=== PATIENT | male | born 1940 | race African-American/Black ===

== ENCOUNTER 2021-01-16 14:32 | Inpatient (IN) | payer MEDICARE, BC ==
[~2021-01-16] VITALS: Ht 182.9 cm; Wt 68.0 kg
--- NOTE | 2021-01-16 14:42 | NUR ---
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
--- NOTE | 2021-01-16 14:45 | NUR ---
[employer] [employer] ESTABLISHED 22G L HAND
[2021-01-16] MEDS ORDERED: MORPHINE SULFATE INJ 4 MG/ML DISP.SYRIN ONE (14:56)
[2021-01-16] MEDS ORDERED: ONDANSETRON HCL/PF 4 MG/2 ML VIAL ONE (14:56)
[2021-01-16] MEDS ORDERED: IV NS 0.9% 1,000 ML BAG IV ONE (15:00)
[2021-01-16] MEDS ORDERED: ONDANSETRON HCL/PF 4 MG/2 ML VIAL IVP ONE (15:00)
[2021-01-16] MEDS ORDERED: MORPHINE SULFATE INJ 2 MG/ML DISP.SYRIN IV ONE (15:00)
[2021-01-16 15:24] LABS: BASOPHILS # (AUTO) 0.1 K/uL (0.0-0.2); EOSINOPHILS % (AUTO) 0.1 % (0.0-6.0); HEMATOCRIT 39 % (39-51); HEMOGLOBIN 12.9 g/dL (13.5-17.5); LYMPHOCYTES # (AUTO) 0.4 K/uL (0.8-4.8); LYMPHOCYTES % (AUTO) 2.7 % (20.0-44.0); MEAN CORPUSCULAR HGB CONC 33 g/dl (31.0-36.0); MEAN CORPUSCULAR VOLUME 95 fL (80-96); MONOCYTES # (AUTO) 0.5 K/uL (0.1-1.30); MONOCYTES % (AUTO) 3.6 % (2.0-12.0); NEUTROPHILS # (AUTO) 12.4 K/uL (1.8-8.9); NEUTROPHILS % (AUTO) 92.6 % (43.0-81.0); PLATELET COUNT (AUTO) 339 K/uL (150-450); RED BLOOD CELL COUNT(AUTO) 4.07 MIL/uL (4.5-6.0); WHITE BLOOD COUNT (AUTO) 13.4 K/uL (4.3-11.0)
--- NOTE | 2021-01-16 15:31 | NUR ---
UNABLE TO PROVIDE URINE AT THIS TIME
--- NOTE | 2021-01-16 15:35 | NUR ---
KEG FILLER AT BEDSIDE
--- NOTE | 2021-01-16 15:54 | NUR ---
TAKEN TO CT
[2021-01-16 16:01] LABS: CALCIUM, SERUM 8.6 mg/dL (8.5-10.1); CARBON DIOXIDE 18 mmol/L (21-32); CHLORIDE 91 mmol/L (98-107); CREATININE 1.7 mg/dL (0.6-1.3); GLUCOSE 136 mg/dL (74-106); POTASSIUM 5.1 mmol/L (3.5-5.1); SODIUM SERUM 124 mmol/L (136-145); UREA NITROGEN, BLOOD 35 mg/dL (7-18)
[2021-01-16 16:09] LABS: ALANINE AMINOTRANSFERASE 112 U/L (12-78); ALBUMIN 3.1 g/dL (3.4-5.0); ALKALINE PHOSPHATASE 123 U/L (46-116); ASPARTATE AMINOTRANSFERASE 151 U/L (15-37); BILIRUBIN,DIRECT 0.6 mg/dL (0.0-0.2); BILIRUBIN,TOTAL 1.6 mg/dL (0.2-1.0); LIPASE 107 U/L (73-393); TOTAL PROTEIN, SERUM 7.1 g/dL (6.4-8.2)
--- NOTE | 2021-01-16 16:46 | NUR ---
MOVE SHEET SUBMITTED AND CALLED FOR MS BED.
--- NOTE | 2021-01-16 17:05 | NUR ---
[facility] CALLED [facility] PAGED.
--- NOTE | 2021-01-16 17:06 | NUR ---
COVID ANTIGEN SWAB DONE AND SENT TO LAB
--- NOTE | 2021-01-16 17:06 | NUR ---
URINE COLLECTED AND SENT TO LAB
--- NOTE | 2021-01-16 17:15 | NUR ---
UI DEVELOPER DESIGNER CONTACT INFO: DR LOS MARCH
[2021-01-16 17:18] LABS: BILIRUBIN,URINE SMALL (NEGATIVE); COLOR,URINE YELLOW (YELLOW); LEUKOCYTE ESTERASE ,URINE NEGATIVE (NEGATIVE); NITRITE, URINE NEGATIVE (NEGATIVE); PROTEIN,URINE NEGATIVE (NEGATIVE); UGLUCOSE NEGATIVE (NEGATIVE); UROBILINOGEN,URINE 0.2 EU/dL (0.2)
[2021-01-16] MEDS ORDERED: AMIO100T4 PO (17:18)
[2021-01-16] MEDS ORDERED: FERR240T2 PO (17:18)
[2021-01-16] MEDS ORDERED: FLUT16SP16 NS (17:18)
[2021-01-16] MEDS ORDERED: LEVO112T5 PO (17:18)
[2021-01-16] MEDS ORDERED: SACC250C PO (17:18)
[2021-01-16] MEDS ORDERED: OMEP40CA21 PO (17:18)
[2021-01-16] MEDS ORDERED: MULT-1152 PO (17:18)
[2021-01-16] MEDS ORDERED: EZET10TA32 PO (17:18)
[2021-01-16] MEDS ORDERED: PRAV20TA4 PO (17:18)
[2021-01-16] MEDS ORDERED: FOLI0.8T3 PO (17:18)
[2021-01-16] MEDS ORDERED: ONDA4TAB11 PO (17:18)
[2021-01-16] MEDS ORDERED: BUDE10.26 INH (17:18)
[2021-01-16] MEDS ORDERED: ONDANSETRON HCL/PF 4 MG/2 ML VIAL IVP PRN (18:00)
[2021-01-16] MEDS ORDERED: MORPHINE SULFATE INJ 2 MG/ML DISP.SYRIN IV PRN (18:00)
[2021-01-16] MEDS ORDERED: ACETAMINOPHEN 325 MG TABLET PO PRN (18:00)
[2021-01-16] MEDS ORDERED: Z GUARD REMEDY 2 OZ OINT TP PRN (18:00)
[2021-01-16] MEDS ORDERED: MAGNESIUM HYDROXIDE 30 ML UDC PO PRN (18:00)
[2021-01-16] MEDS ORDERED: HYDROCODONE/APAP 10/325MG TABLET PO PRN (18:00)
[2021-01-16] MEDS ORDERED: MAG HYDROX/AL HYDROX/SIMETH 30 ML UDC PO PRN (18:00)
[2021-01-16] MEDS ORDERED: ONDANSETRON 4 MG TAB.RAPDIS PO PRN (18:00)
[2021-01-16] MEDS ORDERED: EZETIMIBE 10 MG TABLET PO SCH (22:00)
[2021-01-16] MEDS ORDERED: FLUTICASONE PROPIONATE 16 GM BOTTLE NS SCH (22:00)
[2021-01-16] MEDS ORDERED: PRAVASTATIN SODIUM 20 MG TABLET PO SCH (22:00)
--- NOTE | 2021-01-16 23:18 | NUR ---
PT NOTED WITH LOOSE BM X1
--- NOTE | 2021-01-17 00:43 | NUR ---
PT STATED HE HAD A LOOSE BM, STILL FEELS IMPACTED. PREVIOUS BM BEFORE THIS WAS X4 DAYS AGO. PT CONNECTED TO MONITOR AND POX
[2021-01-17] MEDS ORDERED: APIX2.5T PO (01:04)
[2021-01-17] MEDS ORDERED: FERR270T PO (01:07)
[2021-01-17] MEDS ORDERED: LACTULOSE 10 G/15 ML UDC (PYXIS) ONE ×2 (01:16→06:09)
[2021-01-17] MEDS ORDERED: EZETIMIBE 10 MG TABLET ONE (01:16)
[2021-01-17] MEDS: LACTULOSE 10 G/15 ML UDC (PYXIS) GT SCH ×2 (01:25→06:15)
--- NOTE | 2021-01-17 01:25 | NUR ---
NOTIFIED CATHLEEN CRAMER NP TO UPDATE MED RECON.
[2021-01-17] MEDS ORDERED: IV NS 0.9% 1,000 ML IV PRN (01:30)
[2021-01-17] MEDS ORDERED: FLUTICASONE PROPIONATE 16 GM BOTTLE NS SCH (01:34)
[2021-01-17] MEDS ORDERED: APIXABAN 2.5 MG TABLET ONE (02:12)
--- NOTE | 2021-01-17 04:11 | NUR ---
PT NOTED WITH LOOSE BM X1.
--- NOTE | 2021-01-17 04:42 | NUR ---
UPDATED MIKEL () ON PT'S STATUS
[2021-01-17 06:09] LABS: BASOPHILS % (AUTO) 0.2 % (0.0-2.0); EOSINOPHILS % (AUTO) 0.2 % (0.0-6.0); HEMATOCRIT 34 % (39-51); HEMOGLOBIN 11.7 g/dL (13.5-17.5); LYMPHOCYTES # (AUTO) 1.3 K/uL (0.8-4.8); LYMPHOCYTES % (AUTO) 8.6 % (20.0-44.0); MEAN CORPUSCULAR HGB CONC 34 g/dl (31.0-36.0); MEAN CORPUSCULAR VOLUME 94 fL (80-96); MONOCYTES # (AUTO) 1.5 K/uL (0.1-1.30); MONOCYTES % (AUTO) 9.8 % (2.0-12.0); NEUTROPHILS # (AUTO) 12.1 K/uL (1.8-8.9); NEUTROPHILS % (AUTO) 81.2 % (43.0-81.0); PLATELET COUNT (AUTO) 308 K/uL (150-450); RED BLOOD CELL COUNT(AUTO) 3.67 MIL/uL (4.5-6.0); WHITE BLOOD COUNT (AUTO) 14.9 K/uL (4.3-11.0)
--- NOTE | 2021-01-17 06:11 | NUR ---
ROOM 312-1 AFTER SHIFT CHANGE
--- NOTE | 2021-01-17 06:31 | NUR ---
LOOSE BM X1
--- NOTE | 2021-01-17 06:31 | NUR ---
ADLS PERFORMS; PT SKIN KEPT C/D/I. PT DENIES PAIN OR DISCOMFORT. ALL NEEDS MET.
[2021-01-17 06:56] LABS: CALCIUM, SERUM 8.2 mg/dL (8.5-10.1); CARBON DIOXIDE 20 mmol/L (21-32); CHLORIDE 94 mmol/L (98-107); CREATININE 1.7 mg/dL (0.6-1.3); GLUCOSE 117 mg/dL (74-106); MAGNESIUM 2.3 mg/dL (1.8-2.4); PHOSPHORUS 5.2 mg/dL (2.5-4.9); SODIUM SERUM 126 mmol/L (136-145); UREA NITROGEN, BLOOD 38 mg/dL (7-18)
[2021-01-17] MEDS ORDERED: BUDESONIDE RESPULE INH 0.5 MG/2 ML AMPUL.NEB IH SCH (07:05)
--- NOTE | 2021-01-17 07:10 | NUR ---
CALLED 3W TO GIVE REPORT; RN NOT AVAILABLE AT THIS TIME.
[2021-01-17] MEDS ORDERED: LEVOTHYROXINE SODIUM 75 MCG TABLET PO SCH (07:30)
[2021-01-17] MEDS ORDERED: PANTOPRAZOLE 40 MG TABLET.DR PO SCH (07:30)
[2021-01-17] MEDS ORDERED: ALBUTEROL FS 2.5 MG/3 ML VIAL.NEB NEB SCH (07:35)
[2021-01-17] MEDS ORDERED: PANTOPRAZOLE 40 MG TABLET.DR PO ONE (07:37)
[2021-01-17] MEDS ORDERED: LEVOTHYROXINE SODIUM 100 MCG TABLET ONE (07:37)
[2021-01-17] MEDS ORDERED: LEVOTHYROXINE SODIUM 50 MCG TABLET ONE (07:37)
[2021-01-17] MEDS ORDERED: ALBUTEROL FS 2.5 MG/3 ML VIAL.NEB ONE (07:47)
--- NOTE | 2021-01-17 07:50 | NUR ---
CALLED RT FOR BREATHING TX.
--- NOTE | 2021-01-17 07:53 | NUR ---
report given to Julian PEREZ for richi.
--- NOTE | 2021-01-17 08:44 | NUR ---
RN NOTE Patient received from ER, A/O X4, no respiratory distress, no SOB. Denies any GI distress, no abdominal pain noted. Safety precautions implemented, bed locked in lowest position, call light within reach.
[2021-01-17] MEDS ORDERED: FERROUS GLUCONATE 1 EA TABLET PO SCH (09:00)
[2021-01-17] MEDS ORDERED: APIXABAN 2.5 MG TABLET PO SCH (09:00)
[2021-01-17] MEDS ORDERED: LACTOBACILLUS RHAMNOSUS GG 1 EACH CAP.SPRINK PO SCH (09:00)
[2021-01-17] MEDS ORDERED: FOLIC ACID 1 MG TABLET PO SCH (09:00)
[2021-01-17] MEDS ORDERED: AMIODARONE HCL 200 MG TABLET PO SCH (09:00)
[2021-01-17] MEDS ORDERED: FERROUS GLUCONATE 270 MG PO SCH (09:00)
[2021-01-17 09:46] VITALS: BP 110/59
--- NOTE | 2021-01-17 10:34 | NUR ---
DC NOTE Patient A/O X4, no respiratory distress, remains afebrile, D/C home picked up by via private transportation. Pertinent info given, according to , he will have a MD visit with GI on monday.
[2021-01-17] MEDS ORDERED: MULTIVITAMIN/LUTEIN/MINERALS 1 TAB PO SCH (22:00)
== END 2021-01-17 10:23 | disposition home or self-care (01) | DRG 391 ==
LOC: ER 14:37 → EDSEX 14:37 → TRANSITION 01-17 01:17 → MED 01-17 08:17
PROVIDERS: ADMIT Internal Medicine; ATTEND Internal Medicine
DX: K59.00 Constipation, unspecified (principal); N17.0 Acute kidney failure with tubular necrosis; E87.1 Hypo-osmolality and hyponatremia; R18.8 Other ascites; K74.60 Unspecified cirrhosis of liver; E03.9 Hypothyroidism, unspecified; I48.91 Unspecified atrial fibrillation; Z20.822 Contact with and (suspected) exposure to COVID-19; Z95.818 Presence of other cardiac implants and grafts; E86.1 Hypovolemia; N18.9 Chronic kidney disease, unspecified; Z88.0 Allergy status to penicillin; K52.9 Noninfective gastroenteritis and colitis, unspecified
CPT/HCPCS: 36415; 71045-TC; 80048-TC; 80076-TC; 83690-TC; 83735-TC; 84100-TC; 85025-TC; 85730-TC; 87081-TC; C9803; G0378; J2270; J2405; J7030